=== PATIENT | female | born 1960 | race Caucasian/White ===

== ENCOUNTER → 2016-12-07 | Outpatient (CLI) | payer MEDICARE, BC | LOC: LAB 11:45 | DX: R26.0 Ataxic gait (principal); R68.2 Dry mouth, unspecified ==

== ENCOUNTER → 2017-02-24 | Outpatient (CLI) | payer MEDICARE, BC | LOC: LAB 09:18 | DX: R53.83 Other fatigue (principal); E55.9 Vitamin D deficiency, unspecified; G82.50 Quadriplegia, unspecified; Z13.1 Encounter for screening for diabetes mellitus ==

== ENCOUNTER → 2017-04-24 | Outpatient (CLI) | payer MEDICARE, BC | LOC: LAB 08:47 | DX: E55.9 Vitamin D deficiency, unspecified (principal) ==

== ENCOUNTER → 2017-06-08 | Outpatient (CLI) | payer MEDICARE, BC | LOC: RAD 11:01 | DX: N20.0 Calculus of kidney (principal) ==

== ENCOUNTER → 2017-06-26 | Outpatient (CLI) | payer MEDICARE, BC ==
[~2017-06-26] VITALS: Ht 162.6 cm; Wt 79.1 kg
[~2017-06-26] MED LIST: AMITRIPTYLINE H50 M1 PO; ANTIVERT12.5 M1 PO; BACLOFEN10 M1 PO; ESTRADIOL0.5 M1 PO; HCTZ 25MG25 MG PO; SUNMARK VITAMIN1 TAB PO
[2017-06-26 13:34] VITALS: BP 105/72
== END ==
LOC: AMSURD 12:49
DX: R55 Syncope and collapse (principal); R53.83 Other fatigue; I95.9 Hypotension, unspecified

== ENCOUNTER → 2017-07-11 | Outpatient (CLI) | payer MEDICARE, BC ==
[2017-06-26 13:34] VITALS: BP 105/72
== END ==
LOC: RAD 12:00 → VAS 16:18
DX: I95.9 Hypotension, unspecified (principal); R55 Syncope and collapse

== ENCOUNTER → 2017-07-14 | Outpatient (CLI) | payer MEDICARE, BC ==
[2017-06-26 13:34] VITALS: BP 105/72
== END ==
LOC: CARDREHAB 09:38 → PT 15:01
DX: I95.9 Hypotension, unspecified (principal); R55 Syncope and collapse; R07.9 Chest pain, unspecified; R06.02 Shortness of breath
CPT/HCPCS: A9500

== ENCOUNTER → 2017-12-08 | Outpatient (CLI) | payer MEDICARE, BC ==
[2017-06-26 13:34] VITALS: BP 105/72
== END ==
LOC: LAB 13:24
DX: E55.9 Vitamin D deficiency, unspecified (principal); Z88.1 Allergy status to other antibiotic agents; Z88.0 Allergy status to penicillin; Z88.7 Allergy status to serum and vaccine; Z88.8 Allergy status to other drugs, medicaments and biological substances

== ENCOUNTER → 2018-04-13 | Outpatient (CLI) | payer MEDICARE, BC ==
[2017-06-26 13:34] VITALS: BP 105/72
== END ==
LOC: LAB 09:27
DX: J02.9 Acute pharyngitis, unspecified (principal)

== ENCOUNTER → 2018-04-23 | Outpatient (CLI) | payer MEDICARE, BC ==
[2017-06-26 13:34] VITALS: BP 105/72
[2018-04-23 13:10] LABS: HEMOGLOBIN 12.4 g/dL (12.5-16.0); MEAN CELL VOLUME 91 fl (78-100); MEAN CORPUSCULAR HEMOGLOBIN 29 pg (27-31); MEAN CORPUSCULAR HGB CONC 32 g/dL (33-37); MEAN PLATELET VOLUME 8.5 fl (7.4-10.4); PLATELET COUNT 395 K/mm3 (130-400); RED BLOOD COUNT 4.31 M/mm3 (4.10-5.30); RED CELL DISTRIBUTION WIDTH 13.7 % (11.5-14.5); WHITE BLOOD COUNT 6.2 K/mm3 (4.8-10.8)
[2018-04-23 13:41] LABS: ALBUMIN 4.1 g/dL (3.5-5.0); CALCIUM 9.2 mg/dL (8.4-10.2); TOTAL BILIRUBIN 0.4 mg/dL (0.2-1.3); TOTAL PROTEIN 7.7 g/dL (6.3-8.2)
[2018-04-23 14:20] LABS: ERYTHROCYTE SEDIMENTATION RATE 18 mm/hr (0-30); LYMPHOCYTE 38 % (20-51); MONOCYTE 9 % (3-10); NEUTROPHILS 51 % (42-75)
== END ==
LOC: LAB 12:41
PROVIDERS: Family Medicine
DX: R53.83 Other fatigue (principal); G82.50 Quadriplegia, unspecified; J03.90 Acute tonsillitis, unspecified

== ENCOUNTER → 2018-04-24 | Outpatient (CLI) | payer MEDICARE, BC ==
[2017-06-26 13:34] VITALS: BP 105/72
== END ==
LOC: LAB 09:02
DX: J02.0 Streptococcal pharyngitis (principal); R53.83 Other fatigue

== ENCOUNTER → 2018-06-13 | Outpatient (CLI) | payer MEDICARE, BC ==
[2017-06-26 13:34] VITALS: BP 105/72
== END ==
LOC: RAD 09:46
DX: N20.0 Calculus of kidney (principal)

== ENCOUNTER → 2018-12-12 | Outpatient (CLI) | payer MEDICARE, BC ==
[2017-06-26 13:34] VITALS: BP 105/72
== END ==
LOC: LAB 11:17
DX: E55.9 Vitamin D deficiency, unspecified (principal)

== ENCOUNTER → 2019-04-09 | Outpatient (CLI) | payer MEDICARE, BC ==
[2017-06-26 13:34] VITALS: BP 105/72
== END ==
LOC: RAD 08:18 → MAMMO 09:15 → RAD 09:15
DX: Z12.31 Encounter for screening mammogram for malignant neoplasm of breast (principal); Z13.820 Encounter for screening for osteoporosis; M85.852 Other specified disorders of bone density and structure, left thigh; M85.851 Other specified disorders of bone density and structure, right thigh

== ENCOUNTER → 2019-06-10 | Outpatient (CLI) | payer MEDICARE, BC ==
[2017-06-26 13:34] VITALS: BP 105/72
[2019-06-10 09:44] LABS: POTASSIUM 4.1 mmol/L (3.5-5.1)
[2019-06-10 09:46] LABS: CALCIUM 9.4 mg/dL (8.3-10.5)
== END ==
LOC: LAB 08:54
PROVIDERS: Urology
DX: N20.0 Calculus of kidney (principal)

== ENCOUNTER → 2019-10-08 | Outpatient (CLI) | payer MEDICARE, BC ==
[2017-06-26 13:34] VITALS: BP 105/72
[2019-10-08 16:00] LABS: ALBUMIN 4.4 g/dL (3.5-5.0)
[2019-10-08 16:01] LABS: POTASSIUM 3.6 mmol/L (3.5-5.1)
[2019-10-08 16:02] LABS: CALCIUM 8.3 mg/dL (8.3-10.5)
[2019-10-08 16:03] LABS: TOTAL PROTEIN 7.8 g/dL (6.4-8.3)
[2019-10-08 16:05] LABS: TOTAL BILIRUBIN 0.2 mg/dL (0.2-1.2)
== END ==
LOC: LAB 15:40
DX: R10.9 Unspecified abdominal pain (principal); R15.9 Full incontinence of feces

== ENCOUNTER → 2019-10-24 | Day surgery (SDC) | payer MEDICARE, BC ==
[2017-06-26 13:34] VITALS: BP 105/72
== END ==
LOC: MSO 08:45
DX: R19.7 Diarrhea, unspecified (principal); R15.9 Full incontinence of feces; Z88.8 Allergy status to other drugs, medicaments and biological substances; Z88.1 Allergy status to other antibiotic agents; Z88.0 Allergy status to penicillin; Z79.52 Long term (current) use of systemic steroids; J45.909 Unspecified asthma, uncomplicated
CPT/HCPCS: 00813; J2704; J7120

== ENCOUNTER → 2020-06-30 | Outpatient (CLI) | payer MEDICARE, BC ==
[2017-06-26 13:34] VITALS: BP 105/72
== END ==
LOC: RAD 08:21 → LAB 08:21
DX: K56.41 Fecal impaction (principal)

== ENCOUNTER → 2020-11-05 | Outpatient (CLI) | payer MEDICARE, BC ==
[2017-06-26 13:34] VITALS: BP 105/72
[2020-11-05 11:51] LABS: EOS # 0.1 (0.04-0.40); EOS % 2.4 % (1.0-5.0); HEMATOCRIT 37.8 % (37.0-47.0); HEMOGLOBIN 11.8 g/dL (12.5-16.0); LYMPH# 1.4 (1.50-4.00); MEAN CELL VOLUME 92 fl (78-100); MEAN CORPUSCULAR HEMOGLOBIN 29 pg (27-31); MEAN CORPUSCULAR HGB CONC 31 g/dL (33-37); MEAN PLATELET VOLUME 8.5 fl (7.4-10.4); MONO # 0.5 (0.20-0.80); NEU # 2.9 (1.40-6.50); PLATELET COUNT 412 K/mm3 (130-400); RED BLOOD COUNT 4.11 M/mm3 (4.10-5.30); RED CELL DISTRIBUTION WIDTH 13.8 % (11.5-14.5); WHITE BLOOD COUNT 4.9 K/mm3 (4.8-10.8)
[2020-11-05 11:57] LABS: CALCIUM 9.4 mg/dL (8.3-10.5)
[2020-11-05 11:58] LABS: TOTAL PROTEIN 7.6 g/dL (6.4-8.3)
[2020-11-05 12:00] LABS: TOTAL BILIRUBIN 0.4 mg/dL (0.2-1.2)
[2020-11-05 12:04] LABS: MAGNESIUM 1.98 mg/dL (1.60-2.60)
== END ==
LOC: RAD 11:28 → LAB 11:28
PROVIDERS: Family Medicine
DX: R53.82 Chronic fatigue, unspecified (principal); E55.9 Vitamin D deficiency, unspecified; J01.00 Acute maxillary sinusitis, unspecified; M25.519 Pain in unspecified shoulder; N64.4 Mastodynia

== ENCOUNTER → 2020-11-09 | Outpatient (CLI) | payer MEDICARE, BC ==
[2017-06-26 13:34] VITALS: BP 105/72
== END ==
LOC: MAMMO 07:30 → RAD 07:41
DX: N64.4 Mastodynia (principal); M25.519 Pain in unspecified shoulder

== ENCOUNTER → 2021-05-10 | Outpatient (CLI) | payer MEDICARE, BC ==
[2021-05-10 10:45] LABS: BASO # 0.03 (0.02-0.10); EOS # 0.16 (0.04-0.40); EOS % 2.8 % (1.0-5.0); HEMATOCRIT 39.8 % (37.0-47.0); HEMOGLOBIN 12.6 g/dL (12.5-16.0); LYMPH# 1.36 (1.50-4.00); MEAN CELL VOLUME 93 fl (78-100); MEAN CORPUSCULAR HEMOGLOBIN 29 pg (27-31); MEAN CORPUSCULAR HGB CONC 32 g/dL (33-37); MEAN PLATELET VOLUME 8.3 fl (7.4-10.4); MONO # 0.44 (0.20-0.80); NEU # 3.68 (1.40-6.50); PLATELET COUNT 406 K/mm3 (130-400); RED CELL DISTRIBUTION WIDTH 13.5 % (11.5-14.5); WHITE BLOOD COUNT 5.7 K/mm3 (4.8-10.8)
[2021-05-10 12:05] LABS: ERYTHROCYTE SEDIMENTATION RATE 34 mm/hr (0-30)
== END ==
LOC: LAB 10:32
PROVIDERS: Family Medicine
DX: D71 Functional disorders of polymorphonuclear neutrophils (principal); D72.829 Elevated white blood cell count, unspecified

== ENCOUNTER → 2021-07-01 | Outpatient (CLI) | payer MEDICARE, BC | LOC: RAD 07:44 | DX: R06.02 Shortness of breath (principal) | CPT/HCPCS: Q9967 ==

== ENCOUNTER → 2021-11-11 | Outpatient (CLI) | payer MEDICARE, BC ==
[2021-11-11 15:56] LABS: PH-URINE 5.5 (5.0 - 8.0); URINE APPEARANCE HAZY; URINE BILIRUBIN NEGATIVE (NEGATIVE); URINE BLOOD 50 ery/uL (NEGATIVE); URINE COLOR YELLOW; URINE GLUCOSE NEGATIVE (NEGATIVE); URINE KETONE TR (NEGATIVE); URINE LEUKOCYTE ESTERASE NEGATIVE (NEGATIVE); URINE MUCUS PRESENT (NOT PRESENT); URINE NITRATE NEGATIVE (NEGATIVE); URINE PROTEIN(semi-quant) 1+ (NEGATIVE); URINE UROBILINOGEN NORMAL (NORMAL)
== END ==
LOC: RAD 10:37 → LAB 10:37
PROVIDERS: Urology
DX: N20.2 Calculus of kidney with calculus of ureter (principal)

== ENCOUNTER → 2021-11-18 | Outpatient (CLI) | payer MEDICARE, BC | LOC: RAD 10:23 | DX: M17.11 Unilateral primary osteoarthritis, right knee (principal) ==

== ENCOUNTER → 2021-11-30 | Outpatient (CLI) | payer MEDICARE, BC | LOC: MAMMO 13:00 | DX: Z13.820 Encounter for screening for osteoporosis (principal); M85.80 Other specified disorders of bone density and structure, unspecified site ==

== ENCOUNTER → 2021-11-30 | Outpatient (CLI) | payer MEDICARE, BC | LOC: RAD 13:17 | DX: Z12.31 Encounter for screening mammogram for malignant neoplasm of breast (principal); M85.80 Other specified disorders of bone density and structure, unspecified site ==

== ENCOUNTER 2021-12-13 11:00 | Outpatient (RCR) | payer MEDICARE, BC | END 2021-12-16 | disposition still patient (30) | LOC: PT | DX: M17.12 Unilateral primary osteoarthritis, left knee (principal) ==

== ENCOUNTER 2021-12-20 10:54 | Outpatient (RCR) | payer MEDICARE, BC | END 2021-12-20 17:00 | disposition home or self-care (01) | LOC: PT 10:54 | DX: M17.12 Unilateral primary osteoarthritis, left knee (principal) ==

== ENCOUNTER → 2022-03-14 | Outpatient (CLI) | payer MEDICARE, BC ==
[2022-03-14 17:58] LABS: ERYTHROCYTE SEDIMENTATION RATE 34 mm/hr (0-30)
[2022-03-15 16:00] LABS: BASO # 0.04 K/mm3 (0.02-0.10); EOS # 0.12 K/mm3 (0.04-0.40); HEMATOCRIT 42.5 % (37.0-47.0); HEMOGLOBIN 12.8 g/dL (12.5-16.0); LYMPH# 1.73 K/mm3 (1.50-4.00); MEAN CELL VOLUME 97 fl (78-100); MEAN CORPUSCULAR HEMOGLOBIN 29 pg (27-31); MEAN CORPUSCULAR HGB CONC 30 g/dL (33-37); MEAN PLATELET VOLUME 9.6 fl (7.4-10.4); MONO # 0.51 K/mm3 (0.20-0.80); NEU # 3.67 K/mm3 (1.40-6.50); PLATELET COUNT 453 K/mm3 (130-400); RED BLOOD COUNT 4.37 M/mm3 (4.10-5.30); WHITE BLOOD COUNT 6.1 K/mm3 (4.8-10.8)
[2022-03-16 13:34] LABS: ANA SCREEN with REFLEX Negative (Negative)
== END ==
LOC: LAB 16:02
PROVIDERS: Family Medicine
DX: M19.90 Unspecified osteoarthritis, unspecified site (principal)

== ENCOUNTER 2022-03-30 19:09 | Emergency (ER) | payer MEDICARE, BC ==
[~2022-03-30] VITALS: Ht 160 cm; Wt 93.2 kg
[2022-03-30 20:07] LABS: URINE APPEARANCE CLEAR; URINE BILIRUBIN NEGATIVE (NEGATIVE); URINE BLOOD 250 ery/uL (NEGATIVE); URINE COLOR YELLOW; URINE GLUCOSE NEGATIVE (NEGATIVE); URINE KETONE NEGATIVE (NEGATIVE); URINE LEUKOCYTE ESTERASE NEGATIVE (NEGATIVE); URINE MUCUS PRESENT (NOT PRESENT); URINE NITRATE NEGATIVE (NEGATIVE); URINE PROTEIN(semi-quant) NEGATIVE (NEGATIVE); URINE UROBILINOGEN NORMAL (NORMAL); URINE WBC 0 /hpf (0-3)
[2022-03-30 20:21] LABS: BASO # 0.01 K/mm3 (0.02-0.10); EOS # 0.09 K/mm3 (0.04-0.40); EOS % 1.2 % (1.0-5.0); HEMATOCRIT 38.7 % (37.0-47.0); HEMOGLOBIN 12.6 g/dL (12.5-16.0); LYMPH# 1.55 K/mm3 (1.50-4.00); MEAN CELL VOLUME 90 fl (78-100); MEAN CORPUSCULAR HEMOGLOBIN 29 pg (27-31); MEAN CORPUSCULAR HGB CONC 33 g/dL (33-37); MEAN PLATELET VOLUME 8.8 fl (7.4-10.4); MONO # 0.81 K/mm3 (0.20-0.80); NEU # 5.22 K/mm3 (1.40-6.50); PLATELET COUNT 396 K/mm3 (130-400); RED BLOOD COUNT 4.28 M/mm3 (4.10-5.30); RED CELL DISTRIBUTION WIDTH 12.9 % (11.5-14.5); WHITE BLOOD COUNT 7.7 K/mm3 (4.8-10.8)
[2022-03-30 20:38] LABS: ALBUMIN 4.2 g/dL (3.4-4.8); POTASSIUM 3.7 mmol/L (3.5-5.1)
[2022-03-30 20:41] LABS: TOTAL PROTEIN 7.6 g/dL (6.2-8.1)
[2022-03-30 20:43] LABS: TOTAL BILIRUBIN 0.3 mg/dL (0.2-1.2)
[2022-03-30] MEDS ORDERED: FLOMAX0.4 MG PO (21:46)
[2022-03-30 22:14] VITALS: BP 132/80
== END 2022-03-30 22:38 | disposition home or self-care (01) ==
LOC: ED 19:09
PROVIDERS: Physician Assistant
DX: N20.0 Calculus of kidney (principal)
CPT/HCPCS: J1885; J3010; J7030

== ENCOUNTER → 2023-09-13 | Day surgery (SDC) | payer MEDICARE, BC ==
[~2023-09-13] MED LIST changes: +CYMBALTA60 M1 PO; +FLOMAX0.4 MG PO; +FLUTICASONE P15.8 ML NS; +PROTONIX40 MG/Pack PO; +ZANAFLEX4 M1 PO
== END | disposition home or self-care (01) ==
LOC: MSO 09:42
DX: H25.11 Age-related nuclear cataract, right eye (principal)
CPT/HCPCS: 00142; J0171; J2250; V2632

== ENCOUNTER → 2023-10-11 | Day surgery (SDC) | payer MEDICARE, BC | END | disposition home or self-care (01) | LOC: MSO 07:53 | DX: H25.12 Age-related nuclear cataract, left eye (principal) | CPT/HCPCS: 00142; J0171; J2250; V2632 ==

== ENCOUNTER → 2024-08-12 | Outpatient (CLI) | payer MEDICARE, BC ==
[~2024-08-12] MED LIST changes: +CETIRIZINE HCL10 MG PO; +NORCO 10-325 T1 EACH PO; +ORALONE5 GM DT; +PERIDEX473 ML MM; +PROTONIX TR40 M1 PO; +SYSTANE HYDRATI10 ML OP; +TEMOVATE OINT30 GM TOP; +[UNRECOGNIZED DRUG - CODE] DE
== END ==
LOC: MAMMO 10:19
DX: Z12.31 Encounter for screening mammogram for malignant neoplasm of breast (principal)